=== PATIENT | female | born 1975 | race Caucasian/White ===

== ENCOUNTER 2016-10-11 14:25 | Emergency (ER) | payer BC ==
[~2016-10-11] VITALS: Ht 170.2 cm; Wt 100.0 kg
[~2016-10-11 14:25] MED LIST changes: -*LABETALOL HCL 100 MG/20 ML VIAL PERIprocedural Use ONLY ONE; -*ONDANSETRON 4 MG VIAL PERIprocedural Use ONLY ONE; -CHLORHEXIDINE GLUCONATE 2 % 1 PACK (2 CLOTHS) TOPICAL PRN; -DO NOT ADM ANY ANTICOAGULANT DRUGS PRN; -INSULIN HUMAN REGULAR 1,000 UNITS/10 ML VIAL SQ PRN; -LACTATED RINGER'S 1000 ML IV PRN; -METOPROLOL TARTRATE 25 MG TAB PO PRN; -POVIDONE IODINE 5% (ANTISEPSIS KIT) 4 APPLICATIONS EACH NARE PRN; -PROPOFOL 200 MG/20 ML AMP IV ONE; -SODIUM CHLORID 0.9% 500 ML IV PRN
[2016-10-11 14:28] VITALS: BP 149/81; PULSE 90; RESP 16; TEMP 98; O2SAT 98
--- NOTE | 2016-10-11 14:36 | PD ---
HPI Chief Complaint: neuro symptoms Time Seen by Provider: 14:28 Travel History International Travel<30 days: No Contact w/Intl Traveler<30days: No Traveled to known affect area: No History of Present Illness HPI 40-year-old female complains of headache, left-sided facial drooping, numbness of the tongue. Patient has history of MS. Patient states that she has recurrent right-sided facial drooping, numbness of the tongue with exacerbation of MS frequently. Patient also has recurrent headache problem. Patient has been seen by neurologist in [place]. Patient has history of neuropathy and with sided weakness which is normal for her. Patient had and dorsal the this afternoon. Patient came out of the procedure and started having severe headache , left-sided facial drooping and numbness of the tongue. Patient was brought to the ED for evaluation. Patient states that this is normal for her. Patient states that the headaches about the same headache she has for years. Patient denies any recent head injury. Patient denies any visual change. Patient denies any neck pain. Patient denies any fever chills. PFSH Past Medical History Cancer: Yes (RT OVARIAN CA) Cardiovascular Problems: No Diabetes: Yes (INSULIN DEPENDENT) Endocrine: Yes Genitourinary: No Hepatitis: No Hiatal Hernia: Yes Immune Disorder: No (PRAKASH AGUIRRE CARRIER) Neurologic: Yes (LOLA. ARM AND LOLA. LEG NEUROPATHY, STROKE 2016) Psychiatric: Yes (ANXIETY AND DEPRESSION) Reproductive: Yes (RT OVARIAN CA) Respiratory: No Thyroid Disease: No Past Surgical History Abdominal Surgery: Yes (CHOLECYSTECTOMY) AICD: No Gynecologic Surgery: Yes (C SECTION, TUBAL LIGATION, TUMOR REMOVED FROM OVARY) Joint Replacement: No Pacemaker: No Social History Tobacco Use: No Substance Use: No Allergies-Medications (Allergen,Severity, Reaction): Coded Allergies: Ceclor (Verified Allergy, Severe, ANAPHYLAXIS, 10/11/16) Olives (Verified Allergy, Severe, ANAPHYLAXIS, 10/11/16) ALLERGY TO OLIVES AND OLIVE BRINE Penicillin (Verified Allergy, Severe, ANAPHYLAXIS, 10/11/16) Toradol (Verified Allergy, Severe, STOPPED BREATHING, 10/11/16) Uncoded Allergies: ADRIANNE (Allergy, Severe, ANAPHYLAXIS, 10/11/16) ADRIANNE AND CAPER BRINE Reported Meds & Prescriptions Reported Meds & Active Scripts Active Reported Lisinopril 20 Mg Tab 20 Mg PO DAILY Pantoprazole (Pantoprazole Sodium) 40 Mg Tab 40 Mg PO DAILY Hydrocodone-Acetaminophen 7.5-325 mg Tab 1 Tab PO BID PRN Gabapentin 300 Mg Cap 300 Mg PO BID Tramadol (Tramadol HCl) 50 Mg Tab 50 Mg PO BID PRN Flexeril (Cyclobenzaprine HCl) 10 Mg Tab 10 Mg PO TID Januvia (Sitagliptin Phosphate) 100 Mg Tab 100 Mg PO DAILY Levemir Inj (Insulin Detemir) 1,000 unit/ 10 ML Vial 12 Units SQ HS Do not mix with any other Insulin. Humalog Inj (Insulin Human Lispro) 1,000 Unit/10 Ml Vial 1-9 SQ DIRECTED PRN Max dose at bedtime:( )units; sugars< 70,(0)units; sugars 150-199,(1)unit; sugars 200-249,(3)units; sugars 250-299,(5)units; sugars 300-349,(7)units; sugars more than 349,(9)units. Review of Systems General / Constitutional: No: Fever Eyes: No: Visual changes HENT: Positive: Headaches Cardiovascular: No: Chest Pain or Discomfort Respiratory: No: Shortness of Breath Gastrointestinal: No: Abdominal Pain Genitourinary: No: Dysuria Musculoskeletal: No: Pain Skin: No Rash Neurologic: No: Weakness Psychiatric: No: Depression Endocrine: No: Polydipsia Hematologic/Lymphatic: No: Easy Bruising Physical Exam Narrative GENERAL: Well-nourished, well-developed patient. SKIN: Focused skin assessment warm/dry. HEAD: Normocephalic. EYES: No scleral icterus. No injection or drainage. Pupils 3 mm equal reactive. NECK: Supple, trachea midline. No JVD or lymphadenopathy. CARDIOVASCULAR: Regular rate and rhythm without murmurs, gallops, or rubs. RESPIRATORY: Breath sounds equal bilaterally. No accessory muscle use. GASTROINTESTINAL: Abdomen soft, non-tender, nondistended. MUSCULOSKELETAL: No cyanosis, or edema. BACK: Nontender without obvious deformity. No CVA tenderness. Neurologic exam: Patient has mild drooping of the left side of the mouth not including the forehead. Patient has mild weakness in the left arm and left leg. Sensory function intact. Patient states all these neuro deficit is recurrent symptoms that she has with MS. Data Data Last Documented VS Vital Signs Date Time Temp Pulse Resp B/P Pulse Ox O2 Delivery O2 Flow Rate FiO2 10/11/16 14:34 Room Air 10/11/16 14:28 98.0 90 16 149/81 98 MDM Medical Decision Making Medical Screen Exam Complete: Yes Emergency Medical Condition: Yes Differential Diagnosis Differential diagnosis including acute exacerbation of MS, TIA, CVA, neuropathy. Narrative Course 40-year-old female with recurrent headache, left-sided facial weakness and left- sided weakness. History of MS. Patient does not wish to have any study done today. Patient wants to go home and take her medications. Patient just finished endoscopy for chronic recurrent abdominal pain. Advised patient to follow with GI specialist for that. Diagnosis Primary Impression: Multiple sclerosis exacerbation Additional Instructions: Continue all medications. Follow-up personal physician and neurologist. Return if worse. Med/Other Pt SpecificInfo: No Change to Meds Disposition: 01 DISCHARGE HOME Condition: Stable Dylon Finnegan MD October 11, 2016 14:36
== END 2016-10-11 15:04 | disposition home or self-care (01) ==
LOC: NEPC 14:25
DX: G35 Multiple sclerosis (principal); R51 Headache; R29.810 Facial weakness; R20.0 Anesthesia of skin; E11.9 Type 2 diabetes mellitus without complications
CPT/HCPCS: 99283

== ENCOUNTER → 2016-10-11 | Outpatient (CLI) | payer BC ==
[~2016-10-11] VITALS: Ht 182.9 cm; Wt 162.6 kg
[~2016-10-11] MED LIST: *LABETALOL HCL 100 MG/20 ML VIAL PERIprocedural Use ONLY ONE; *ONDANSETRON 4 MG VIAL PERIprocedural Use ONLY ONE; CHLORHEXIDINE GLUCONATE 2 % 1 PACK (2 CLOTHS) TOPICAL PRN; CYCL1TAB29 PO; DO NOT ADM ANY ANTICOAGULANT DRUGS PRN; GABA300C5 PO; HUMALOG SQ; HYDR-3580 PO; INSULIN HUMAN REGULAR 1,000 UNITS/10 ML VIAL SQ PRN; LACTATED RINGER'S 1000 ML IV PRN; LEVEMIR SQ; LISI-515 PO; METOPROLOL TARTRATE 25 MG TAB PO PRN; PANT40TA3 PO; POVIDONE IODINE 5% (ANTISEPSIS KIT) 4 APPLICATIONS EACH NARE PRN; PROPOFOL 200 MG/20 ML AMP IV ONE; SITA1TAB2 PO; SODIUM CHLORID 0.9% 500 ML IV PRN; TRAM50TA PO
[2016-10-11 11:08] VITALS: BP 147/96; PULSE 94; RESP 18; TEMP 99; O2SAT 96
[2016-10-11 13:55] VITALS: BP 122/80; PULSE 86; RESP 20; TEMP 98.5; O2SAT 94
== END ==
LOC: HEND 10:11
PROVIDERS: ATTEND Hospitalist
DX: R10.13 Epigastric pain (principal); K21.9 Gastro-esophageal reflux disease without esophagitis; K29.70 Gastritis, unspecified, without bleeding; K22.9 Disease of esophagus, unspecified; E11.9 Type 2 diabetes mellitus without complications; Z79.4 Long term (current) use of insulin
CPT/HCPCS: 00740; 43239; 82948; 88305; 88312; J2405; J7120

== ENCOUNTER → 2016-11-09 | Outpatient (CLI) | payer BC ==
[~2016-11-09] VITALS: Ht 182.9 cm; Wt 161.3 kg
[~2016-11-09] MED LIST changes: +CHLORHEXIDINE GLUCONATE 2 % 1 PACK (2 CLOTHS) TOPICAL PRN; +INSULIN HUMAN REGULAR 1,000 UNITS/10 ML VIAL SQ PRN; +LACTATED RINGER'S 1000 ML IV PRN; +METOPROLOL TARTRATE 25 MG TAB PO PRN; +POVIDONE IODINE 5% (ANTISEPSIS KIT) 4 APPLICATIONS EACH NARE PRN; +PROPOFOL 200 MG/20 ML AMP IV ONE; +SODIUM CHLORID 0.9% 500 ML IV PRN
[2016-11-09 12:40] VITALS: BP 142/91; PULSE 117; RESP 20; TEMP 98.3; O2SAT 96
--- NOTE | 2016-11-09 15:50 | PD.PROCEDR ---
GI Procedure PROCEDURE PERFORMED Incomplete colonoscopy to proximal transverse colon due to poor prep INDICATION FOR PROCEDURE Change in bowel habits PROCEDURE: The procedure, risks and benefits were discussed with Ms. Garcia and informed consent was obtained. Anesthesia sedated her with Diprivan. She was placed in the left lateral decubitus position. Colonoscopy: The Pentax videoscope was introduced through the rectum and advanced to proximal transverse colon. Retroflexion was performed in the rectum. Colonic prep was poor and inadequate FINDINGS: After solid stools were noted and having seen liquid stools throughout the colon the procedure was limited to the advancement of the scope to the proximal transverse colon what little mucosa was seen was basically unremarkable so as retroflexion and rectal examination ESTIMATED BLOOD LOSS: None SPECIMENS REMOVED: None COMPLICATIONS: None IMPRESSION: Incomplete colonoscopy due to poor prep PLAN: High fiber diet Repeat colonoscopy with a 2 day prep Enoch Crowley MD Nov 09, 2016 15:50
[2016-11-09 16:00] VITALS: BP 137/86; PULSE 95; RESP 18; TEMP 97.6; O2SAT 97
== END ==
LOC: HEND 12:07
PROVIDERS: ATTEND Internal Medicine Gastroenterology
DX: R19.4 Change in bowel habit (principal); E11.9 Type 2 diabetes mellitus without complications; Z79.4 Long term (current) use of insulin
CPT/HCPCS: 00810; 45378; 82948; J1815; J7120

== ENCOUNTER → 2016-11-17 | Day surgery (SDC) | payer BC ==
[~2016-11-17] MED LIST changes: -CHLORHEXIDINE GLUCONATE 2 % 1 PACK (2 CLOTHS) TOPICAL PRN; -INSULIN HUMAN REGULAR 1,000 UNITS/10 ML VIAL SQ PRN; +LACTATED RINGER'S 1000 ML INJ 1,000 ML ONE; -LACTATED RINGER'S 1000 ML IV PRN; -METOPROLOL TARTRATE 25 MG TAB PO PRN; -POVIDONE IODINE 5% (ANTISEPSIS KIT) 4 APPLICATIONS EACH NARE PRN; -PROPOFOL 200 MG/20 ML AMP IV ONE; +PROPOFOL 500 MG/50 ML BTL IV ONE; -SODIUM CHLORID 0.9% 500 ML IV PRN
--- NOTE | 2016-11-17 15:16 | GIPROC ---
[facility] [address] [facility], [address] COLONOSCOPY PROCEDURE REPORT EXAM DATE: 11/17/2016 PATIENT NAME: Margo Garcia MR #: [id number] BIRTHDATE: 1975 ENDOSCOPIST: Paulina Rodriguez MD ORDER #: [id number] [employer]URAL [employer] SHOT[employer] DRILLER: STATUS: outpatient INDICATIONS: The patient is a 40 yr old female here for a colonoscopy due to bloating and abdominal pain PROCEDURE PERFORMED: Colonoscopy with biopsy MEDICATIONS: None and Per Anesthesia. PREP QUALITY: fair ESTIMATED BLOOD LOSS: None CONSENT: The patient understands the risks and benefits of the procedure and understands that these risks include, but are not limited to: sedation, allergic reaction, infection, perforation and/or bleeding. Alternative means of evaluation and treatment include, among others: physical exam, x-rays, and/or surgical intervention. The patient elects to proceed with this endoscopic procedure. medical equipment was checked for proper function. Hand hygiene and appropriate measures for infection prevention was taken. After the risks, benefits and alternatives of the procedure were thoroughly explained, Informed consent was verified, confirmed and timeout was successfully executed by the treatment team. A digital exam revealed no abnormalities of the rectum The EC-[id number] ([id number]) and [id number] ([id number]) endoscope was introduced through the anus and advanced to the terminal ileum which was intubated for a short distance. The instrument was then slowly withdrawn as the colon was fully examined. COLON FINDINGS: The colonic mucosa appeared normal. Random Bx to R/O colitis. Mild diverticulosis was noted in the sigmoid colon. Retroflexed views revealed no abnormalities The scope was then completely withdrawn from the patient and the procedure terminated. ADVERSE EVENTS: There were no complications. IMPRESSIONS: 1. The colonic mucosa appeared normal 2. Random Bx to R/O colitis 3. Mild diverticulosis was noted in the sigmoid colon 4. Retroflexed views revealed no abnormalities 5. Revealed no abnormalities of the rectum RECOMMENDATIONS: 1. Await biopsy results. Biopsy results will not be ready for 7-10 days. If you don't hear from us in two weeks, call our office for results. 2. Yearly hemoccult 3. High fiber diet RECALL: Return 10 years Colonoscopy Paulina Rodriguez MD eSigned: Paulina Rodriguez MD 11/17/2016 3:16 PM cc:
== END | disposition home or self-care (01) ==
LOC: ESDC 12:03
PROVIDERS: ATTEND Hospitalist
DX: R14.0 Abdominal distension (gaseous) (principal); R10.9 Unspecified abdominal pain; K57.90 Diverticulosis of intestine, part unspecified, without perforation or abscess without bleeding
CPT/HCPCS: 00810; 45380; 88305; J7120